=== PATIENT | female | born 1995 | race Caucasian/White ===

== ENCOUNTER 2018-09-28 09:43 | Inpatient (IN) | payer OTHER ==
[~2018-09-28] VITALS: Ht 162.6 cm; Wt 89.9 kg
[2018-09-28 11:26] VITALS: Ht 162.6 cm; Wt 89.9 kg
[2018-09-28] MEDS ORDERED: LACTATED RINGER'S 1,000 ML IV PRN (11:27)
[2018-09-28] MEDS ORDERED: MISOPROSTOL 200 MCG TAB PR PRN (11:30)
[2018-09-28] MEDS ORDERED: METHYLERGONOVINE 0.2 MG INJ IM PRN (11:30)
[2018-09-28] MEDS ORDERED: IBUPROFEN 600 MG TAB PO PRN (11:30)
[2018-09-28] MEDS ORDERED: OXYTOCIN 30 UNITS/LR 500 ML IV SCH ×2 (11:30)
[2018-09-28] MEDS ORDERED: BUTORPHANOL 2 MG INJ IV PRN (11:30)
[2018-09-28] MEDS ORDERED: CARBOPROST 250 MCG INJ IM PRN (11:30)
[2018-09-28] MEDS ORDERED: OXYTOCIN 30 UNITS/LR 500 ML IV PRN (11:30)
[2018-09-28] MEDS ORDERED: MINERAL OIL LIGHT 10 ML VIAL TOP PRN (11:30)
[2018-09-28] MEDS ORDERED: LIDOCAINE 1% (MPF) 30 ML INJ INJ PRN (11:30)
--- NOTE | 2018-09-28 11:50 | TRIAGE ---
OB Triage Datetime Report Generated by CPN: 09/28/2018 11:50 Datetime: 09/28/2018 10:16 Time of Arrival: 09/28/2018 09:34 EGA: 39.4 Arrived By: Ambulatory Arrived From: Home Movement: Decreased Contractions: Regular Time Contractions Began: 09/27/2018 22:00 Rupture of Membranes: Denies Vaginal Bleeding: Normal Show Vaginal Discharge: Denies Recent Sexual Intercouse: Denies Abdominal Trauma: Not Applicable Patient Complaints: None Time Provider Notified: 09/28/2018 10:06 Provider Notified: Salceda Initial Plan: NST, BPP/NIKKO, EFW, VE Datetime: 09/28/2018 10:11 Assessment Type: Triage Maternal Assessment Level of Consciousness: Fully Conscious DTR's/Clonus: DTRs 2+; No Clonus Headache: Denies Blurred Vision: No Respiratory Effort: Unlabored; Regular Rhythm; Equal Expansion Breath Sounds, Left: Clear and Equal Breath Sounds, Right: Clear and Equal Nausea/Vomiting: Denies RUQ Epigastric Pain: Denies Lower Extremities Edema: Bilateral Lower Extremities Degree: Trace Upper Extremities Edema: Bilateral Upper Extremities Degree: Trace Facial Edema: None Fall Risk Assessment History of Falling: (0) No Secondary Diagnosis: (0) No Ambulatory Aid: (0) Bedrest/Nurse Assist IV Therapy: (0) No Gait: (0) Normal/Bedrest/Immobile Mental Status: (0) Oriented to Own Ability Fall Score: 0 Fall Risk Score Definition: No Risk: No action required Vaginal Exam Dilatation (cms): 0.0 Effacement (%): 0 Station: -4 Exam By: TM Datetime: 09/28/2018 09:54 Stage of : OB Triage
[2018-09-28] MEDS: LACTATED RINGER'S 1,000 ML IV SCH ×2 (12:51→17:43)
[2018-09-28 12:56] VITALS: BP 134/75; PULSE 93; RESP 20
[2018-09-28] MEDS ORDERED: PNV11TAB PO (12:58)
[2018-09-28] MEDS: MISOPROSTOL 50 MCG CAPSULE PO SCH ×3 (13:40→21:00)
[2018-09-28] MEDS ORDERED: AMPICILLIN 2 GM/NS (PMX) 100 ML IV ONE (15:00)
[2018-09-28] MEDS: AMPICILLIN 1 GM/NS (PMX) 50 ML IV SCH ×2 (18:59→22:58)
[2018-09-29] MEDS: MISOPROSTOL 50 MCG CAPSULE PO SCH ×5 (01:00→16:14)
[2018-09-29] MEDS: LACTATED RINGER'S 1,000 ML IV SCH (02:44)
[2018-09-29] MEDS: AMPICILLIN 1 GM/NS (PMX) 50 ML IV SCH ×4 (02:44→15:00)
[2018-09-29] MEDS ORDERED: CALCIUM CARBONATE 500 MG CHEW TAB PO ONE (04:00)
[2018-09-29] MEDS ORDERED: OXYTOCIN 30 UNITS/LR 500 ML IV SCH ×3 (04:30→16:00)
[2018-09-29] MEDS ORDERED: EPHEDrine SULFATE 50 MG/5 ML SYG ONE (07:00)
[2018-09-29] MEDS ORDERED: OXYTOCIN 30 UNITS/LR 500 ML BAG IV ONE (07:00)
[2018-09-29] MEDS ORDERED: MINERAL OIL LIGHT 10 ML VIAL TOP ONE (10:00)
[2018-09-29] MEDS ORDERED: LIDOCAINE 1% (MPF) 30 ML INJ INJ PRN (10:00)
[2018-09-29] MEDS ORDERED: IBUPROFEN 600 MG TAB PO PRN (10:00)
[2018-09-29] MEDS: ONDANSETRON 4 MG INJ IV PRN ×2 (10:15→13:24)
[2018-09-29] MEDS ORDERED: DEXTROSE 5%-LR 1,000 ML IV SCH (10:43)
[2018-09-29] MEDS ORDERED: CEFAZOLIN 2 GM/50 ML (PMX) 50 ML IVPB ONE (13:00)
--- NOTE | 2018-09-29 13:11 | PREAC ---
Date/Time of Note Date/Time of Note DATE: 09/29/18 TIME: 13:10 Anesthesia Eval and Record Evaluation Time Pre-Procedure Interview DATE: 09/29/18 TIME: 13:10 Age 23 Sex female NPO: 8 hrs Preoperative diagnosis Planned procedure c/s Past Medical History Past Medical History: Includes GI: Obesity Surgery & Anesthesia Issues No known issue Meds Anticoagulation: No Beta Alonzo within 24 hr: No Reason Beta Alonzo not given: Pt. not on B-Alonzo Reported Medications [id number] ( 19) 1 Each Tablet, 1 TAB PO DAILY, TAB 09/28/18 Current Medications Lactated Ringer's 1,000 ml @ 125 mls/hr Q8H IV Last administered on 09/29/18at 02:44; Admin Dose 125 MLS/HR; Start 09/28/18 at 11:27 Butorphanol Tartrate (Stadol) 2 mg Q2H PRN IV .PAIN; Start 09/28/18 at 11:30 Oxytocin/Lactated Ringer's 500 ml @ 500 mls/hr ONCE POST IV ; Start 09/28/18 at 11:30 Oxytocin/Lactated Ringer's 500 ml @ 125 mls/hr POST IV ; Start 09/28/18 at 11:30 Lactated Ringer's 1,000 ml @ 2,000 mls/hr Q30M PRN IV .ANESTHESIA; Start 09/28/18 at 11:27 Misoprostol (Cytotec 50 Mcg Capsule) 50 mcg Q4 PO Last administered on 09/28/18at 13:40; Admin Dose 50 MCG; Start 09/28/18 at 13:00 Ampicillin 50 ml @ 100 mls/hr Q4H IV Last administered on 09/29/18at 11:16; Admin Dose 100 MLS/HR; Start 09/28/18 at 19:00 Oxytocin/Lactated Ringer's 500 ml @ 0 mls/hr Q0M IV Last administered on 09/29/18at 08:49; Admin Dose 1 MLS/HR; Start 09/29/18 at 04:30 Lidocaine (Xylocaine 1% (Mpf)) 30 ml ONCE PRN INJ .EPISIOTOMY; Start 09/29/18 at 10:00 Ibuprofen (Motrin) 600 mg ONCE PRN PO .PAIN 1-5; Start 09/29/18 at 10:00 Ondansetron HCl (Zofran Inj) 4 mg Q4H PRN IV NAUSEA AND/OR VOMITING Last administered on 09/29/18at 10:15; Admin Dose 4 MG; Start 09/29/18 at 10:00 Dextrose/Lactated Ringer's 1,000 ml @ 125 mls/hr Q8H IV Last administered on 09/29/18at 10:52; Admin Dose 125 MLS/HR; Start 09/29/18 at 10:43 Cefazolin Sodium/ Dextrose 50 ml @ 100 mls/hr ONCE ONCE IVPB ; Start 09/29/18 at 13:00; Stop 09/29/18 at 13:29 Meds reviewed: Yes Allergies Coded Allergies: No Known Allergy (Unverified , 09/28/18) Allergies Reviewed: Yes Labs/Studies Labs Reviewed: Reviewed by anesthesiologist Result Diagram: 09/28/18 1305 09/28/18 1459 Laboratory Tests 09/28/18 14:59 test: Positive Pre-procedure Exam Last vitals Vital Signs Date Temp Pulse Resp B/P (MAP) Pulse Ox O2 O2 Flow FiO2 Time Delivery Rate 09/28/18 97.6 93 20 134/75 98 Room Air 12:56 (94) Airway: Adequate mouth opening, Adequate thyromental dist Mallampati: Mallampati II Teeth: Normal Lung: Normal Heart: Normal ASA Physical Status ASA physical status: 2 Emergency: None Planned Anesthetic Neuraxial: Spinal Planned Pain Management Sub-arachniod narcotics Pre-operative Attestations Prior to commencing anesthesia and surgery, the patient was re-evaluated, there was verification of: *The patient's identity *The results of appropriate recent lab work and preoperative vital signs *The above evaluation not changing prior to induction *Anesthetic plan, risk benefits, alternative and complications discussed with patient/family; questions answered; patient/family understands, accepts and wishes to proceed. TAYLOR VANN Sep 29, 2018 13:11
[2018-09-29] MEDS ORDERED: ONDANSETRON 4 MG INJ IV STA (13:18)
[2018-09-29] MEDS ORDERED: morphine SULFATE/PF (10 MG/10 ML) INJ ONE (13:19)
[2018-09-29] MEDS ORDERED: CITRIC ACID/NA CITRATE 30 ML CUP PO ONE (13:30)
[2018-09-29] MEDS ORDERED: METOCLOPRAMIDE 10 MG INJ IV ONE (13:30)
--- NOTE | 2018-09-29 13:42 | PREOPHP ---
DATE OF ADMISSION: 09/28/2018 HISTORY OF PRESENT ILLNESS: This is a 23-year-old lady, 1, para 0. Her EDC 10/01/2018 at 39 and 4/7 weeks , admitted to labor and delivery area in labor. She had care at Dr. Perkins's office, [facility] and the care was uneventful. She started to have contract ions about 3 hours prior to admission. PAST PERSONAL HISTORY: No history of diabetes, TB, asthma. ALLERGIES: No allergies. SOCIAL HISTORY: Patient does not smoke. She does not drink. MEDICATIONS: She does not take any drugs except her iron and vitamins. GYNECOLOGIC HISTORY: She had menarche at the age of 10, every 28 days interval, 3 to 4 days duration and moderate in amount. FAMILY HISTORY: Noncontributory. REVIEW OF SYSTEMS: CARDIOVASCULAR: No chest pains. RESPIRATORY: No cough. GASTROINTESTINAL: No diarrhea, no vomiting. GENITOURINARY: No dysuria. PHYSICAL EXAMINATION: GENERAL: Reveals a conscious, coherent lady and in no acute distress. VITAL SIGNS: Her blood pressure 120/70, pulse rate 80 per minute, respirations 16 per minute. BREASTS, HEART AND LUNGS: Within normal limits. ABDOMEN: Soft, fundic height 39 cm. heart tones 140 per minute. PELVIC: Done by nurse on admission revealed the cervix to be closed, station -3 in cephalic presenta tion with the bag of water intact. EXTREMITIES: No pedal edema. ADMITTING DIAGNOSIS: 39 and 4/7 weeks intrauterine in early labor, suspected macrosomia. Patient had an ultrasound done and estimated weight was 4138 grams, 9 pounds 2 ounces. The sundar ns of delivery were explained to the patient ask to go for vaginal delivery. The risks, benefits, an d alternatives to vaginal delivery was explained to the patient asked to go for . The risks of explained because of the size of the baby. The risks of shoulder dystocia was explaine d to her as well. Patient discharged to go for vaginal delivery. She signed the paper for shoulder dystocia, the patie nt was planned to have Cytotec. She received 1 dose of Cytotec. After the one dose she continued to have contractions, so that she was observed at 3:45 a.m. on 09/28/2018. She had a spontaneous ruptu re of bag of water and then she was ordered to have Pitocin augmentation. EF contractions with a spa ce out at 6:10 a.m. 09/29/2018. I reevaluated the patient. She was 7 cm, 100% effaced, station -2 w ith 2+ caput. The plans of delivery were explained to the patient and she still wanted to continue w ith vaginal delivery and so she was started on Pitocin augmentation. She was having good contraction s that and then still at 12:45 p.m. 09/29/2018 I reevaluated the patient. She was still 8 cm dilated and is still at station -2 with 3+ caput and so she has been 8 cm dilated, according to the nurse fo r the last 4 hours, so that she was advised to have . The procedures were explained to the patient and she understood everything totally. The risks, benefits, and alternatives were discussed with her as well and to her and to her mother. Dictated By: THIEN TESFAYE MD NS/NTS Conf#: [id number] DID#: [id number] CC: JOVANY PERKINS MD;*EndCC*
[2018-09-29] MEDS ORDERED: KETOROLAC 30 MG INJ IV PRN ×2 (14:30)
[2018-09-29] MEDS ORDERED: NALOXONE (0.4 MG/ML) INJ IV PRN (14:30)
[2018-09-29] MEDS ORDERED: METOCLOPRAMIDE 10 MG INJ IV PRN (14:30)
[2018-09-29] MEDS ORDERED: HYDROmorphONE 0.5 MG/0.5 ML SYG IV PRN ×2 (14:30)
[2018-09-29] MEDS ORDERED: ALBUTEROL 0.083% (NEB) 2.5 MG/3 ML AMP HHN PRN (14:30)
[2018-09-29] MEDS ORDERED: HYDROmorphONE 1 MG/5 ML IV SYRINGE IV PRN ×3 (14:30)
[2018-09-29] MEDS ORDERED: DIPHENHYDRAMINE 50 MG INJ IV PRN ×2 (14:30)
[2018-09-29] MEDS ORDERED: FENTAnyl 50 MCG/ML VIAL IV PRN ×2 (14:30)
[2018-09-29] MEDS ORDERED: ONDANSETRON 4 MG INJ IV PRN ×2 (14:30)
[2018-09-29] MEDS ORDERED: MEPERIDINE 25 MG INJ IV PRN (14:30)
[2018-09-29] MEDS ORDERED: LACTATED RINGER'S 1,000 ML IV SCH (14:40)
[2018-09-29] MEDS ORDERED: PHENYLephrine (100 MCG/ML) 10ML SYG ONE (14:41)
--- NOTE | 2018-09-29 14:42 | OPPN ---
Date/Time of Note Date/Time of Note DATE: 09/29/18 TIME: 14:40 Operative Report Planned Procedure Procedure date Sep 29, 2018 Procedure(s) PRIMARY CSECTION Performed by see signature line Political Science Professor: JEAN ANGLIN MD 2nd Political Science Professor none Pre-procedure diagnosis 39WEEK 5 DAYS IUP ARREST OF DILATATION SUSPECTED MACROSOMIA [id number] Anesthesia Type: Aatwp2c spinal Post-Procedure Post-procedure diagnosis 39WEEK 5 DAYS IUP ARREST OF DILATATION SUSPECTED MACROSOMIA Findings Live Baby GIRL, Apgars 9and 9, weight 9LBS 3OZ [id number] Estimated Blood Loss: 500 - 600 mls Specimen(s) none Grafts/Implant(s) PLACENTA Complication(s) none THIEN TESFAYE MD Sep 29, 2018 14:42
[2018-09-29] MEDS ORDERED: HYDROCODONE/APAP (5/325) TAB PO PRN ×2 (15:00)
[2018-09-29] MEDS ORDERED: METHYLERGONOVINE 0.2 MG INJ IM PRN (15:00)
[2018-09-29] MEDS ORDERED: MISOPROSTOL 200 MCG TAB PR PRN (15:00)
[2018-09-29] MEDS ORDERED: METHYLERGONOVINE 0.2 MG TAB PO PRN (15:00)
[2018-09-29] MEDS ORDERED: CARBOPROST 250 MCG INJ IM PRN (15:00)
[2018-09-29] MEDS ORDERED: OXYTOCIN 30 UNITS/LR 500 ML IV PRN (15:00)
--- NOTE | 2018-09-29 15:14 | PAC ---
Date/Time of Note Date/Time of Note DATE: 09/29/18 TIME: 15:14 Post-Anesthesia Notes Post-Anesthesia Note Last documented vital signs Vital Signs Date Temp Pulse Resp B/P (MAP) Pulse Ox O2 O2 Flow FiO2 Time Delivery Rate 09/28/18 97.6 93 20 134/75 98 Room Air 12:56 (94) Activity: WNL Respiratory function: WNL Cardiovascular function: WNL Mental status: Baseline Pain reasonably controlled: Yes Hydration appropriate: Yes Nausea/Vomiting absent: Yes TAYLOR VANN Sep 29, 2018 15:14
[2018-09-29 16:30] VITALS: BP 136/78; PULSE 104; RESP 18
[2018-09-29 16:45] VITALS: BP 130/66; PULSE 107; RESP 18
[2018-09-29 17:00] VITALS: BP 130/75; PULSE 110; RESP 18
[2018-09-29 17:30] VITALS: BP 131/73; PULSE 104; RESP 18
[2018-09-29 18:30] VITALS: BP 118/74; PULSE 100; RESP 20
[2018-09-29] MEDS: SENNA/DOCUSATE NA (8.6MG/50MG) TAB PO SCH (20:34)
[2018-09-29 20:35] VITALS: BP 119/72; PULSE 103; RESP 18
[2018-09-30 00:05] VITALS: BP 113/58; PULSE 104
[2018-09-30 03:44] VITALS: BP 133/72; PULSE 110; RESP 19
[2018-09-30] MEDS: LANOLIN HPA 1 PKT TOP PRN (05:57)
[2018-09-30] MEDS: LACTATED RINGER'S 1,000 ML IV SCH ×2 (07:07→15:00)
[2018-09-30 08:00] VITALS: BP 123/74; PULSE 101; RESP 18
[2018-09-30] MEDS: SENNA/DOCUSATE NA (8.6MG/50MG) TAB PO SCH ×2 (09:47→21:38)
--- NOTE | 2018-09-30 10:09 | OPR ---
DATE OF OPERATION: 09/29/2018 PREOPERATIVE DIAGNOSIS: A 39 and 5/7 weeks intrauterine in labor, arrest of dilatation, gonzalez spected macrosomia. POSTOPERATIVE DIAGNOSIS: A 39 and 5/7 weeks intrauterine in labor, arrest of dilatation, gonzalez spected macrosomia. OPERATION PERFORMED: Primary low transverse section. SURGEON: Thien Owen MD. LIAISON PLANNER: Dr. Sampson ANESTHESIA: Spinal. ANESTHESIOLOGIST: Dr. Cochran. OPERATION PERFORMED: Primary low transverse section. OPERATIVE TECHNIQUE: Under spinal anesthesia, the patient was prepped and draped in the usual fashio n for abdominal surgery. After checking for the effect of the anesthesia, a Pfannenstiel incision, 1 2 cm skin incision was performed. The incision was carried from the skin up to the fascia. Upon ope sea the skin up to the fascia, small blood vessels were noted to be oozing and these were all cauter ized. Fascia was opened transversely followed by splitting the muscles vertically and the peritoneum vertically. Upon opening the abdominal cavity the bladder blade was put in place. A small ryan was performed from the serosa up to the endometrium, and the ryan was carried sideways with the aid of m y 2 fingers. My left hand was inserted in the lower segment of the uterus and tried to deliver the b emily's head. There was difficulty in delivering the baby's head so that the vacuum was applied once a nd after 3 seconds delivered the baby's head. Baby's airway was quickly suctioned with amniotic flui d. There was 1 loop of tight cord around the baby's neck that needs to be released prior to the deli very of the rest of the body of the baby. Baby's airways were quickly suctioned with amniotic fluid. The cord was clamped after 30 seconds and the baby was handed to the NICU team. The placenta was d elivered manually and complete. Placental culture was ordered. The uterus was exteriorized. The ut erus was cleansed with wet lap sponge to make sure that no membranes were left behind. After c orrect sponge count, the uterus was closed in the usual fashion using #1 chromic for the first layer, continuous locking suture was used followed by #1 chromic for the second layer, imbricating sutures were used. Bleeders were checked, and there was no bleeding noted. After checking for any bleeders in which there were none, both tubes and ovaries were inspected. They were healthy looking. The bro ad ligaments were checked for any hematoma and there was none noted. Then the uterus was put back to the pelvic cavity. Once again, uterine incision was checked for any bleeders and there was no bleed ing noted. After correct sponge count, needle count and instrument count as confirmed by the scrub t ech and colorer hides and skins, the abdomen was closed in the usual fashion using 0 Vicryl for the peritoneum, 0 Vicryl for the muscles, for the fascia 0 Vicryl continuous stitch was used followed by few figure-of- eight sutures for the subcutaneous tissue, it was closed with 3-0 Vicryl and the skin was closed with 3-0 Vicryl, subcuticular suture was used. The patient tolerated the procedure well. Estimated bloo d loss about 600 mL. Vital signs were stable during and after the procedure. She delivered a health y baby girl at 1401 p.m. 09/29/2018. 9 and 9, weighing 9 pounds 3 ounces, 4165 grams, 22 inche s long. Dictated By: THIEN STEWART/CASPER Conf#: [id number] DID#: [id number]
[2018-09-30] MEDS: IBUPROFEN 800 MG TAB PO PRN ×2 (13:09→21:38)
[2018-09-30 15:56] VITALS: BP 126/81; PULSE 90; RESP 20
[2018-09-30 20:35] VITALS: BP 110/77; PULSE 98; RESP 17
[2018-10-01 03:44] VITALS: BP 119/66; PULSE 100; RESP 17
[2018-10-01] MEDS: IBUPROFEN 800 MG TAB PO PRN ×2 (05:34→17:43)
[2018-10-01 08:50] VITALS: BP 135/82; PULSE 88; RESP 18
[2018-10-01] MEDS: SENNA/DOCUSATE NA (8.6MG/50MG) TAB PO SCH ×2 (08:52→21:14)
[2018-10-01] MEDS: LANOLIN HPA 1 PKT TOP PRN (12:11)
--- NOTE | 2018-10-01 13:12 | CONS ---
Consultation Date/Type/Reason Admit Date/Time Sep 28, 2018 at 11:30 Initial Consult Date 09/30/18 Type of Consult anesthesia Reason for Consultation follow up Date/Time of Note DATE: 10/01/18 TIME: 13:11 24 HR Interval Summary Free Text/Dictation Pt seen and examined on 09/30/18 is POD#1 s/p primary c/s. Pt received spinal duramorph for post op pain control. No N/V/WEINER. Exam/Review of Systems Exam Vitals Vital Signs Date Temp Pulse Resp B/P (MAP) Pulse Ox O2 O2 Flow FiO2 Time Delivery Rate 10/01/18 97.7 88 18 135/82 08:50 (99) 10/01/18 Room Air 03:44 09/30/18 96 03:44 Intake and Output 09/30/18 09/30/18 10/01/18 1515:00 23:00 07:00 IntakeIntake Total 500 ml 1500 ml OutputOutput Total 500 ml BalanceBalance 500 ml -500 ml 1500 ml Results Result Diagram: 09/30/18 0729 09/30/18 0729 Medications Medication Current Medications Methylergonovine Maleate (Methergine) 0.2 mg Q6H PRN PO .VAGINAL BLEEDING; Start 09/29/18 at 15:00 Acetaminophen/ Hydrocodone Bitart ([place] (5/325)) 1 tab Q4H PRN PO MODERATE PAIN LEVEL 4-6; Start 09/29/18 at 15:00 Acetaminophen/ Hydrocodone Bitart ([place] (5/325)) 2 tab Q4H PRN PO SEVERE PAIN LEVEL 7-10; Start 09/29/18 at 15:00 Ibuprofen (Motrin) 800 mg Q8 PRN PO MILD PAIN LEVEL 1-3 Last administered on 10/01/18at 05:34; Admin Dose 800 MG; Start 09/29/18 at 15:00 Simethicone (Mylicon) 160 mg Q8H PRN PO .GAS; Start 09/29/18 at 15:00 Senna/Docusate Sodium (Senokot-S) 1 tab BID PO Last administered on 10/01/18at 08:52; Admin Dose 1 TAB; Start 09/29/18 at 21:00 Lanolin (Lanolin Hpa) 1 applic BEDSIDE MEDICATION PRN TOP .NIPPLES Last administered on 10/01/18at 12:11; Admin Dose 1 APPLIC; Start 09/29/18 at 15:00 Diphtheria/ Tetanus/Acell Pertussis (Adacel) 0.5 ml ONCE ONCE IM* ; Start 10/02/18 at 09:00; Stop 10/02/18 at 09:01 Measles/Mumps/ Rubella Vaccine Live (Mmr Ii Vaccine) 0.5 ml ONCE ONCE SC* ; Start 10/02/18 at 09:00; Stop 10/02/18 at 09:01 Oxytocin/Lactated Ringer's 500 ml @ 0 mls/hr ONCE PRN IV .VAGINAL BLEEDING; Start 09/29/18 at 15:00 Methylergonovine Maleate (Methergine) 0.2 mg ONCE PRN IM .VAGINAL BLEEDING; Start 09/29/18 at 15:00 Carboprost Tromethamine (Hemabate) 250 mcg ONCE PRN IM .VAGINAL BLEEDING; Start 09/29/18 at 15:00 Misoprostol (Cytotec) 1,000 mcg ONCE PRN [place] .VAGINAL BLEEDING; Start 09/29/18 at 15:00 TAYLOR VANN Oct 01, 2018 13:12
[2018-10-01] MEDS ORDERED: MAGNESIUM HYDROXIDE 30ML CUP PO STA (13:51)
[2018-10-01] MEDS ORDERED: BISACODYL 10 MG SUPP PR STA (13:51)
[2018-10-01 16:10] VITALS: BP 132/75; PULSE 80; RESP 20
--- NOTE | 2018-10-01 17:02 | PN ---
Date/Time of Note Date/Time of Note DATE: 09/30/18 TIME: 17:01 Assessment/Plan VTE Prophylaxis Risk score (from Nsg)>0 risk: 2 SCD applied (from Ns): No SCD contraindicated: low risk/ambulating Pharmacological prophylaxis: NA/contraindicated Pharm contraindication: low risk/ambulating Lines/Catheters IV Catheter Type (from Nrsg): Peripheral IV Assessment/Plan Assessment/Plan POSTCSECTION DAY 1 ORDERED ADVANCE DIET TOLERATED CBC ON 3RD POSTOP DAY Result Diagram: 09/30/18 0729 09/30/18 0729 Subjective 24 Hr Interval Summary Free Text/Dictation POST CSECTION DAY 1 COMPLAIN OF INCISIONAL PAINS GOOD URINE OUTPUT PASSING GAS PER RECTUM NO BOWEL MOVEMENT YET Exam/Review of Systems Exam Vitals Vital Signs Date Temp Pulse Resp B/P (MAP) Pulse Ox O2 O2 Flow FiO2 Time Delivery Rate 10/01/18 98.2 80 20 132/75 Room Air 16:10 (94) 09/30/18 96 03:44 Intake and Output 09/30/18 09/30/18 10/01/18 1414:59 22:59 06:59 IntakeIntake Total 500 ml 1500 ml OutputOutput Total 500 ml BalanceBalance 500 ml -500 ml 1500 ml Exam VITAL SIGNS STABLE: YES AFEBRILE: YES BREAST NOT ENGORGED, NON-TENDER, NO APPRECIABLE MASS: YES LUNGS CLEAR, NO RALES, WHEEZES, RHONCHI: YES SINUS RHYTHM WITHOUT MURMUR: YES ABDOMEN: NON-TENDER FUNDUS: BELOW UMBILICUS BOWEL SOUNDS: PRESENT UTERUS: FIRM INCISION (CLEAN, DRY, AND INTACT): YES LOCHIA: LIGHT DEEP TENDON REFLEXES: 0 EXTREMITIES: NO CALF TENDERNESS EDEMA SCALE: NONE Medications Medication Current Medications Methylergonovine Maleate (Methergine) 0.2 mg Q6H PRN PO .VAGINAL BLEEDING; S tart 09/29/18 at 15:00 Acetaminophen/ Hydrocodone Bitart ([place] (5/325)) 1 tab Q4H PRN PO MODERATE P AIN LEVEL 4-6; Start 09/29/18 at 15:00 Acetaminophen/ Hydrocodone Bitart ([place] (5/325)) 2 tab Q4H PRN PO SEVERE PAIN LEVEL 7-10; Start 09/29/18 at 15:00 Ibuprofen (Motrin) 800 mg Q8 PRN PO MILD PAIN LEVEL 1-3 Last administered on 10/01/18at 05:34; Admin Dose 800 MG; Start 09/29/18 at 15:00 Simethicone (Mylicon) 160 mg Q8H PRN PO .GAS; Start 09/29/18 at 15:00 Senna/Docusate Sodium (Senokot-S) 1 tab BID PO Last administered on 10/01/18at 08:52; Admin Dose 1 TAB; Start 09/29/18 at 21:00 Lanolin (Lanolin Hpa) 1 applic BEDSIDE MEDICATION PRN TOP .NIPPLES Last administered on 10/01/18at 12:11; Admin Dose 1 APPLIC; Start 09/29/18 at 15:00 Diphtheria/ Tetanus/Acell Pertussis (Adacel) 0.5 ml ONCE ONCE IM* ; Start 10/02/18 at 09:00; Stop 10/02/18 at 09:01 Measles/Mumps/ Rubella Vaccine Live (Mmr Ii Vaccine) 0.5 ml ONCE ONCE SC* ; Start 10/02/18 at 09:00; Stop 10/02/18 at 09:01 Oxytocin/Lactated Ringer's 500 ml @ 0 mls/hr ONCE PRN IV .VAGINAL BLEEDING; Start 09/29/18 at 15:00 Methylergonovine Maleate (Methergine) 0.2 mg ONCE PRN IM .VAGINAL BLEEDING; Start 09/29/18 at 15:00 Carboprost Tromethamine (Hemabate) 250 mcg ONCE PRN IM .VAGINAL BLEEDING; Start 09/29/18 at 15:00 Misoprostol (Cytotec) 1,000 mcg ONCE PRN [place] .VAGINAL BLEEDING; Start 09/29/18 at 15:00 THIEN TESFAYE MD Oct 01, 2018 17:02
--- NOTE | 2018-10-01 17:04 | PN ---
Date/Time of Note Date/Time of Note DATE: 10/01/18 TIME: 17:02 Assessment/Plan VTE Prophylaxis Risk score (from Nsg)>0 risk: 2 SCD applied (from Nsg): No SCD contraindicated: low risk/ambulating Pharmacological prophylaxis: NA/contraindicated Pharm contraindication: low risk/ambulating Lines/Catheters IV Catheter Type (from Nrsg): Peripheral IV Assessment/Plan Assessment/Plan POST CSECTION DAY 2 MOM NAD DULCOLAX SUPPOSITORY HOME TOMORROW CBC TOMORROW COUNSELED INSTRUCTED PRESCRIPTION GIVEN FOR PAIN RETURN TO CLINIC IN 2 WEEKS CALL OFFICE IF THERE IS ANY PROBLEM OR CONCERN CONTINUE WITH VITAMINS OD AND FERROUS SULFATE 325MG PO TID DIET ADVISED Result Diagram: 09/30/18 0729 09/30/18728 Subjective 24 Hr Interval Summary Free Text/Dictation POST CSECTION DAY 2 NO BOWEL MOVEMENT GOOD URINE OUTPUT FEELS LESS INCISIONAL PAINS Exam/Review of Systems Exam Vitals Vital Signs Date Temp Pulse Resp B/P (MAP) Pulse Ox O2 O2 Flow FiO2 Time Delivery Rate 10/01/18 98.2 80 20 132/75 Room Air 16:10 (94) 09/30/18 96 03:44 Intake and Output 09/30/18 09/30/18 10/01/18 1414:59 22:59 06:59 IntakeIntake Total 500 ml 1500 ml OutputOutput Total 500 ml BalanceBalance 500 ml -500 ml 1500 ml Exam VITAL SIGNS STABLE: YES AFEBRILE: YES BREAST NOT ENGORGED, NON-TENDER, NO APPRECIABLE MASS: YES LUNGS CLEAR, NO RALES, WHEEZES, RHONCHI: YES SINUS RHYTHM WITHOUT MURMUR: YES ABDOMEN: NON-TENDER FUNDUS: BELOW UMBILICUS BOWEL SOUNDS: PRESENT UTERUS: FIRM INCISION (CLEAN, DRY, AND INTACT): YES LOCHIA: LIGHT DEEP TENDON REFLEXES: 0 EXTREMITIES: NO CALF TENDERNESS EDEMA SCALE: NONE Medications Medication Current Medications Methylergonovine Maleate (Methergine) 0.2 mg Q6H PRN PO .VAGINAL BLEEDING; Start 09/29/18 at 15:00 Acetaminophen/ Hydrocodone Bitart ([place] (5/325)) 1 tab Q4H PRN PO MODERATE PAIN LEVEL 4-6; Start 09/29/18 at 15:00 Acetaminophen/ Hydrocodone Bitart ([place] (5/325)) 2 tab Q4H PRN PO SEVERE PAIN LEVEL 7-10; Start 09/29/18 at 15:00 Ibuprofen (Motrin) 800 mg Q8 PRN PO MILD PAIN LEVEL 1-3 Last administered on 10/01/18at 05:34; Admin Dose 800 MG; Start 09/29/18 at 15:00 Simethicone (Mylicon) 160 mg Q8H PRN PO .GAS; Start 09/29/18 at 15:00 Senna/Docusate Sodium (Senokot-S) 1 tab BID PO Last administered on 10/01/18at 08:52; Admin Dose 1 TAB; Start 09/29/18 at 21:00 Lanolin (Lanolin Hpa) 1 applic BEDSIDE MEDICATION PRN TOP .NIPPLES Last administered on 10/01/18at 12:11; Admin Dose 1 APPLIC; Start 09/29/18 at 15:00 Diphtheria/ Tetanus/Acell Pertussis (Adacel) 0.5 ml ONCE ONCE IM* ; Start 10/02/18 at 09:00; Stop 10/02/18 at 09:01 Measles/Mumps/ Rubella Vaccine Live (Mmr Ii Vaccine) 0.5 ml ONCE ONCE SC* ; Start 10/02/18 at 09:00; Stop 10/02/18 at 09:01 Oxytocin/Lactated Ringer's 500 ml @ 0 mls/hr ONCE PRN IV .VAGINAL BLEEDING; Start 09/29/18 at 15:00 Methylergonovine Maleate (Methergine) 0.2 mg ONCE PRN IM .VAGINAL BLEEDING; Start 09/29/18 at 15:00 Carboprost Tromethamine (Hemabate) 250 mcg ONCE PRN IM .VAGINAL BLEEDING; Start 09/29/18 at 15:00 Misoprostol (Cytotec) 1,000 mcg ONCE PRN [place] .VAGINAL BLEEDING; Start 09/29/18 at 15:00 THIEN TESFAYE MD Oct 01, 2018 17:04
[2018-10-01 20:10] VITALS: BP 120/74; PULSE 82; RESP 19
[2018-10-02 03:30] VITALS: BP 117/72; PULSE 78; RESP 20
[2018-10-02 08:30] VITALS: BP 124/68; PULSE 85; RESP 18
[2018-10-02] MEDS ORDERED: MEASLES,MUMPS,RUBELLA VACCINE INJ SC* ONE (09:00)
[2018-10-02] MEDS ORDERED: DIPHTH/TET/ACEL PERTUSS (ADULT) 0.5 ML VIAL IM* ONE (09:00)
[2018-10-02] MEDS: SENNA/DOCUSATE NA (8.6MG/50MG) TAB PO SCH (09:00)
[2018-10-02] MEDS: IBUPROFEN 800 MG TAB PO PRN (09:07)
--- NOTE | 2018-10-03 16:25 | DELSUM ---
Delivery Summary A-C Datetime Report Generated by CPN: 10/03/2018 16:24 DELIVERY PERSONNEL Fine Grade Operator: Nicounnkristi, Phoebe MATERNAL INFORMATION Delivery Anesthesia: Spinal Medications in Delivery: SEE ANESTHESIA RECORD Delivery QBL (ml): 600 Placenta Cultured: Yes Maternal Complications: Other RN Comments: 39.4WKS LABOR SUMMARY EDC: 10/01/2018 00:00 No. Babies in Womb: 1 Attempted: No Labor Anesthesia: None LABOR INFORMATION Reason for Induction: Other Reason for Induction- Other: 39.4 wks with decreased movement Onset of Labor: 09/28/2018 13:18 Oxytocin: Induction Group B Beta Strep: Positive Antibiotics # of Doses: 7 Antibiotics Time of Last Dose: 09/28/2018 13:51 Steroids Given: None Reason Steroids Not Administered: Not Applicable MEMBRANES Membranes Rupture Method: Spontaneous Rupture of Membranes: 09/28/2018 15:45 Length of Rupture (hr): 22.27 Amniotic Fluid Color: Clear Amniotic Fluid Amount: Moderate Amniotic Fluid Odor: Normal STAGES OF LABOR Stage 3 hr: 0 Stage 3 min: 1 Total Time in Labor hr: 24 Total Time in Labor min: 44 CSECTION DELIVERY Primary Indication: Arrest of Descent Secondary Indication: ARREST OF DILATATION CSection Urgency: Emergency CSection Incidence: Primary Labor: Labor Elective: N/A CSection Incision: Lower Uterine Transverse BABY A INFORMATION Delivery Date/Time: 09/29/2018 14:01 Method of Delivery: Born in Route : No : N/A Forceps: N/A Vacuum Extraction: Successful Shoulder Dystocia : N/A ASSISTED DELIVERY BABY A Indication for Assisted Delivery: P C/S Catheter Prior to Procedure: Yes Station Vacuum/Forcep Apply: na Position Vacuum/Forcep Apply: Right Occipital Anterior Vacuum Number of Pulls: 1 Vacuum Number of PopOffs: 0 Reduce Pressure btwn Ctx: na Vacuum [employer] Attendant: [place] 3# [id number] exp 09/16/2019 Total Time Vacuum Applied: 10 Type of Forceps: na SHOULDER DYSTOCIA BABY A Delivery Date/Time: 09/29/2018 14:01 PRESENTATION/POSITION BABY A Presentation: Cephalic Cephalic Presentation: Vertex Vertex Position: Right Occipital Anterior Breech Presentation: N/A PLACENTA INFORMATION BABY A Placenta Delivery Time : 09/29/2018 14:02 Placenta Method of Delivery: Manual Removal Placenta Status: Delivered SCORES BABY A Heart Rate 1 min: >100 bpm Resp Effort 1 min: Good Cry Reflex Irritability 1 min: Cough/Sneeze/Pulls Away Muscle Tone 1 min: Active Motion Color 1 min: Body [place], Extremit Blue Resuscitation Effort 1 min: Tactile Stimulation SCORE 1 MIN: 9 Heart Rate 5 min: >100 bpm Resp Effort 5 min: Good Cry Reflex Irritability 5 min: Cough/Sneeze/Pulls Away Muscle Tone 5 min: Active Motion Color 5 min: Body [place], Extremit Blue Resuscitation Effort 5 min: Tactile Stimulation SCORE 5 MIN: 9 INFORMATION BABY A Gestational Age at Delivery: 39.4 Gestational Status: Full Term- 39- 40.6 Weeks Outcome : Liveborn Condition : Stable Infant Sex: Female IDENTIFICATION/MEDS BABY A ID Band Number: [id number] ID Band Location: Right Leg; Left Arm Sensor Applied: Yes Sensor Number: [id number] Sensor Location : Cord Clamp Vitamin K Given : Not Given Erythromycin Given: Not Given WEIGHT/LENGTH BABY A Birthweight (gm): 4165 Infant Weight (lb): 9 Infant Weight (oz): 3 Infant Length (in): 22.00 Infant Length (cm): 55.88 CORD INFORMATION BABY A No. Cord Vessels: 3 Nuchal Cord : N/A Nuchal Cord- Other: 0 True Knot: 0 Cord Blood Taken: Yes Banking/Donate Info: NO Suction: Mouth; Nose ASSESSMENT BABY A Infant Complications: None Physical Findings at Delivery: Within Normal Limits Infant Respirations: Appears Normal Microstrategy Architect/ALS Called : No Infant Care By: Selene MAYES RN Transferred To: Remains with Mother
== END 2018-10-02 15:05 | disposition home or self-care (01) | DRG 788 ==
LOC: OBT 09:43 → L-D 09:43 → OBT 11:30 → L-D 11:30 → PP1 09-29 17:39
PROVIDERS: ADMIT Obstetrics & Gynecology; ATTEND Obstetrics & Gynecology
PROC: 10D00Z1 Extraction of Products of Conception, Low, Open Approach (ICD-10-PCS; principal; 2018-09-29 13:30)
DX: O36.63X0 Maternal care for excessive fetal growth, third trimester, not applicable or unspecified (principal); O62.0 Primary inadequate contractions; G89.18 Other acute postprocedural pain; O99.214 Obesity complicating childbirth; E66.9 Obesity, unspecified; O69.1XX0 Labor and delivery complicated by cord around neck, with compression, not applicable or unspecified; Z3A.39 39 weeks gestation of pregnancy; Z37.0 Single live birth
CPT/HCPCS: 76815; 76818; 80048; 80053; 84112; 85025; 85610; 85730; 86592; 86850; 86900; 86901; 87070; 87102; 99464; G0463; J0290; J0690; J1885; J2274; J2370; J2405; J2590; J2765; J7120; J7121